=== PATIENT | female | born 1980 | race Caucasian/White ===

== ENCOUNTER 2022-12-10 03:22 | Outpatient (CLI) | payer OTHER, SELFPAY ==
[2022-12-10] VITALS (22 sets, daily range): BP systolic 111–179; BP diastolic 66–94; PULSE 97–125; TEMP 36.6–36.9; O2SAT 94–98; BMI 35.8
--- NOTE | 2022-12-10 04:15 | OB.TRI.HP_ITS ---
[facility] Date of Admission: 12/10/22 Date of Service: 12/10/22 Chief Complaint: VB [facility] Narrative POLLY WHATLEY, is a 42 F at 34 weeks and 1 day gestation with vaginal bleeding. She has a known complete placenta previa which was diagnosed at 29 weeks gestation for which she was admitted at [facility]. This is her second episode of vaginal bleeding. She reports the bleeding started around midnight and it was heavier, similar to period like bleeding. She reports the bleeding has since slowed. She denies any abdominal trauma or falls. She denies feeling any contractions or cramping. She denies leaking of fluid. She denies a headache, vision changes, malaise, right upper quadrant pain. She feels well otherwise. Good movement. PFSH PFSH Home Medications vit no.95-ferrous fumarate 28 mg-folic acid 800 mcg tablet () 1 tab PO DAILY see provid 12/10/22 [History Last Taken 12/09/22 08:00 1 TAB] Allergy/AdvReac Type Severity Reaction Status Date / Time No Known Allergies Allergy Verified 12/10/22 03:48 Physical Exam Const alert and no apparent distress General Appearance: comfortable HEENT normocephalic Resp normal respiratory effort GI soft to palpation and non-tender Narrative: SSE performed and cervix visually closed. No active bleeding on exam and scant dark red blood in vaginal vault NST FHR Rate Baby A Baseline: 145 Variability:: Moderate Accelerations:: 15 x 15 Decelerations:: None NST Reactive:: Yes Uterine Activity:: Irregular ctx's Assessment & Plan (1) 34 weeks gestation of : PLAN: FHT reactive and reassuring. Vaginal bleeding has slowed per patient and no active bleeding noted on exam. Cvx closed. Pt planning on delivery at [facility]. Recommend transfer to [facility] as she is stable and this is her second episode of vaginal bleeding. Check CBC, coags, and fibrinogen. Bedside TAUS shows complete placenta previa, subjectively normal fluid, vertex presentation. Discussed pt with Dr. Beltran who is MFM legal secretary receptionist at [facility] and he accepts transfer. (2) Placenta previa: (3) Vaginal bleeding: (4) Anemia affecting : (5) Abnormal glucose affecting : PLAN: Recently failed 1 hour GTT Will need 3 hour GTT (6) Grand multipara: (7) Gestational hypertension: PLAN: BP severe on presentation, and remaining BP's are mild Patient denies symptoms of pre e Check pre e panel (8) AMA (advanced maternal age) multigravida 35+: (9) Limited care:
[2022-12-10] MEDS: Lactated Ringers 500 ML IV.SOLN. 1000 ML IV (04:30)
[2022-12-10 04:45] LABS: Hematocrit 32.3 % (37-47); Hemoglobin 10.6 g/dL (12.0-15.0); Mean Corp Hgb Conc 32.8 g/dL (32-36); Mean Corpuscular Hgb 29.9 pg (27.0-32.0); Mean Corpuscular Volume 91.2 fL (81-99); Mean Platelet Vol. 12.3 fl (6.2-12.0); Platelet Count 151 K/mm3 (150-450); RBC Distribution Width CV 13.9 % (11.6-14.6); RBC Distribution Width SD 46.2 fl (35.1-43.9); Red Blood Count 3.54 M/mm3 (4.2-5.4); White Blood Count 11.2 K/mm3 (4.4-11.0)
[2022-12-10 04:57] LABS: AST(SGOT) 13 U/L (15-37); Alanine Aminotransfer ALT/SGPT 18 U/L (13-56); Creatinine, Serum 0.44 mg/dL (0.55-1.02); EST Glomerular Filtration Rate 167 mL/min (>60); Est Glom Filt Rate - Afr Amer 202 mL/min (>60); Estimated Creatinine Clearance 131.73 ml/min; Uric Acid 3.6 mg/dL (2.6-6.0)
[2022-12-10 05:11] LABS: International Normalized Ratio 1.1; Prothrombin Time (Protime)PT. 13.7 SECONDS (11.7-14.9)
[2022-12-10 05:14] LABS: ALB/GLOB Ratio 0.7 RATIO (0.9-2.4); AST(SGOT) 13 U/L (15-37); Alanine Aminotransfer ALT/SGPT 19 U/L (13-56); Albumin, Serum 2.8 g/dL (3.2-5.0); Alkaline Phosphatase 86 U/L (45-117); Anion Gap 11 (5-15); BUN 6 mg/dL (7-18); BUN/Creat Ratio 14.2 RATIO (10-20); Calcium,Total 8.9 mg/dL (8.5-10.1); Chloride 108 mmol/L (98-107); Creatinine, Serum 0.42 mg/dL (0.55-1.02); EST Glomerular Filtration Rate 175 mL/min (>60); Est Glom Filt Rate - Afr Amer 212 mL/min (>60); Estimated Creatinine Clearance 138.01 ml/min; Glucose 110 mg/dL (74-106); Potassium 3.3 mmol/L (3.5-5.1); Protein, Total 6.8 g/dL (6.4-8.2); Sodium Level 140 mmol/L (136-145)
[2022-12-10 05:33] LABS: Fibrinogen 502 mg/dl (203-444)
[2022-12-10 06:02] LABS: LDH 160 U/L (84-246)
--- NOTE | 2022-12-10 07:45 | NURSING ---
[facility] came to transport pt to [facility] at [id number]. IV was saline locked upon discharge. no IV fluids running.
== END 2022-12-10 07:00 | disposition home or self-care (01) ==
LOC: WPOUT 03:31 → WP 03:31
PROVIDERS: Referring Provider Obstetrics & Gynecology; Visit Provider Obstetrics & Gynecology
DX: O44.03 Complete placenta previa NOS or without hemorrhage, third trimester (principal); Z3A.34 34 weeks gestation of pregnancy; O99.013 Anemia complicating pregnancy, third trimester; O99.810 Abnormal glucose complicating pregnancy; O09.43 Supervision of pregnancy with grand multiparity, third trimester; O13.3 Gestational [pregnancy-induced] hypertension without significant proteinuria, third trimester; O09.523 Supervision of elderly multigravida, third trimester
CPT/HCPCS: 36415; 59025; 59050; 76815; 80053; 82565; 83615; 84450; 84460; 84550; 85027; 85384; 85610; 85730; J7120